=== PATIENT | female | born 1940 | race Caucasian/White ===

== ENCOUNTER 2017-02-15 11:46 | Inpatient (IN) | payer MEDICARE, OTHER ==
[~2017-02-15] VITALS: Ht 167.6 cm; Wt 63.5 kg
[2017-02-15 12:30] LABS: BASOPHILS % (AUTO) 0.2 % (0-1); EOSINOPHILS # (AUTO) 0.1 X10'3 (0-0.9); EOSINOPHILS % (AUTO) 1.7 % (0-6); HEMATOCRIT 41.3 % (35.0-45.0); HEMOGLOBIN 13.9 g/dl (12.0-16.0); LYMPHOCYTES # (AUTO) 0.9 X10'3 (1.1-4.8); LYMPHOCYTES % (AUTO) 11.5 % (21-51); MEAN CORPUSCULAR HEMOGLOBIN 31.7 PG (27.0-31.0); MEAN CORPUSCULAR HGB CONC 33.6 % (33.0-36.5); MEAN CORPUSCULAR VOLUME 94.3 FL (78-98); MEAN PLATELET VOLUME 9.7 FL (7.4-10.4); MONOCYTES # (AUTO) 0.3 X10'3 (0-0.9); NEUTROPHILS # (AUTO) 6.5 X10'3 (1.8-7.7); NEUTROPHILS % (AUTO) 82.6 % (42-75); PLATELET COUNT 191 X10'3 (140-440); RED BLOOD COUNT 4.38 X10'6 (4.20-5.60); RED CELL DISTRIBUTION WIDTH 13.8 % (11.5-14.5); WHITE BLOOD COUNT 7.8 X10'3 (4.5-11.0)
[2017-02-15] MEDS ORDERED: aspirin 325mg tablet PO ONE (12:35)
[2017-02-15] MEDS: ondansetron 4mg rapidly disintigrating tab PO ONE ×2 (12:35→13:02)
[2017-02-15] MEDS: HYDROcodone/acetaminophen 10/325mg tab PO ONE ×2 (12:35→13:02)
[2017-02-15 12:44] LABS: PARTIAL THROMBOPLASTIN TIME 26 SECONDS (22-32); PROTHROMBIN TIME 10.7 SECONDS (9.0-12.0)
[2017-02-15 12:47] LABS: ALANINE AMINOTRANSFERASE 15 U/L (12-78); ALBUMIN/GLOBULIN RATIO 1.1 (1.1-1.5); ALKALINE PHOSPHATASE 74 IU/L (46-116); ANION GAP 9 (8-16); ASPARTATE AMINO TRANSFERASE 15 U/L (10-37); BILIRUBIN,TOTAL 0.5 MG/DL (0.1-1.0); BLOOD UREA NITROGEN 17 MG/DL (7-18); BUN/CREATININE RATIO 18.5 (6.6-38.0); CHLORIDE 105 MMOL/L (99-107); CREATININE 0.92 MG/DL (0.40-0.90); GLUCOSE 109 MG/DL (70-104); POTASSIUM 4.2 MMOL/L (3.5-5.1); SODIUM 139 MMOL/L (135-145); TOTAL CARBON DIOXIDE 25.2 MMOL/L (24-32); TOTAL PROTEIN 7.6 G/DL (6.4-8.2); eGFR 59 ML/MIN
[2017-02-15 13:56] LABS: CLARITY,URINE CLEAR (Clear); COLOR,URINE YELLOW (Yellow); GLUCOSE, URINE NEGATIVE (Neg); KETONES,URINE NEGATIVE (Neg); LEUKOCYTE ESTERASE ,URINE TRACE (Neg); NITRITES, URINE NEGATIVE (Neg); OCCULT BLOOD,URINE NEGATIVE (Neg); PROTEIN,URINE NEGATIVE (Neg); UROBILINOGEN,URINE 0.2 E.U/dL (0.2-1.0)
[2017-02-15 14:08] LABS: UA COLLECTION TYPE CLN CATCH MIDSTREAM
[2017-02-15 14:12] LABS: BACTERIA,URINE FEW /HPF (Neg); RENAL CELLS, URINE FEW /HPF; SQUAMOUS EPITHELIAL CELL,UR MODERATE /LPF (FEW)
[2017-02-15] MEDS ORDERED: sodium chloride 0.45% 1,000 ML IV SCH (14:12)
[2017-02-15 14:13] LABS: RBC,URINE 0-2 /HPF (0-2); WBC,URINE 0-4 /HPF (0-4)
[2017-02-15] MEDS ORDERED: potassium Cl 40MEQ/NS 500ml 500 ML IV PRN ×2 (14:15)
[2017-02-15] MEDS ORDERED: acetaminophen 325mg tablet PO PRN (14:15)
[2017-02-15] MEDS ORDERED: magnesium hydroxide 30ml (MOM) UD suspension PO PRN (14:15)
[2017-02-15] MEDS ORDERED: magnesium 2GM in 50ml NS 50 ML IV PRN (14:15)
[2017-02-15] MEDS ORDERED: potassium Cl 20 mEq SR tablet PO PRN ×2 (14:15)
[2017-02-15] MEDS ORDERED: ondansetron/PF 4mg/2ml inj IV PRN (14:15)
[2017-02-15] MEDS ORDERED: mag hydrox/Alum hydrox/simeth 30ml oral suspension PO PRN (14:15)
[2017-02-15] MEDS ORDERED: magnesium Cl slow-release 64mg tablet PO PRN (14:15)
[2017-02-15] MEDS ORDERED: magnesium 4gm in 100ml NS 100 ML IV PRN (14:15)
[2017-02-15 16:00] VITALS: BP 165/85
[2017-02-15 19:12] LABS: CLARITY,URINE Cloudy (Clear); COLOR,URINE Yellow (Yellow); GLUCOSE, URINE Negative (Neg); KETONES,URINE Trace mg/dl (Neg); LEUKOCYTE ESTERASE ,URINE Large (Neg); NITRITES, URINE Negative (Neg); OCCULT BLOOD,URINE Negative (Neg); PH,URINE 5.5 (4.8-8.0); PROTEIN,URINE Negative (Neg)
[2017-02-15 19:18] LABS: UA COLLECTION TYPE STRAIGHT CATH
[2017-02-15 19:23] LABS: BACTERIA,URINE 4+ /HPF (Neg); RBC,URINE 0-2 /HPF (0-2); WBC,URINE 30-50 /HPF (0-4)
[2017-02-15 19:24] LABS: SQUAMOUS EPITHELIAL CELL,UR MANY /LPF (FEW)
[2017-02-15] MEDS ORDERED: atorvastatin 10mg tablet PO SCH (20:00)
[2017-02-15] MEDS: docusate sod 100mg capsule PO SCH (20:14)
[2017-02-15] MEDS ORDERED: NO HOME MEDS (21:10)
[2017-02-15 22:00] VITALS: BP 134/71
[2017-02-16 02:00] VITALS: BP_SYST 110; BP_SYST 124; BP_SYST 130; BP_DIAS 64; BP_DIAS 70; BP_DIAS 75
[2017-02-16 02:16] VITALS: BP 124/70
[2017-02-16 06:00] VITALS: BP 127/73
[2017-02-16 06:46] LABS: BASOPHILS % (AUTO) 0.6 % (0-1); EOSINOPHILS # (AUTO) 0.1 X10'3 (0-0.9); EOSINOPHILS % (AUTO) 2.5 % (0-6); HEMOGLOBIN 13.5 g/dl (12.0-16.0); LYMPHOCYTES # (AUTO) 1.4 X10'3 (1.1-4.8); LYMPHOCYTES % (AUTO) 26.8 % (21-51); MEAN CORPUSCULAR HEMOGLOBIN 31.9 PG (27.0-31.0); MEAN CORPUSCULAR HGB CONC 33.8 % (33.0-36.5); MEAN CORPUSCULAR VOLUME 94.4 FL (78-98); MONOCYTES # (AUTO) 0.4 X10'3 (0-0.9); MONOCYTES % (AUTO) 7.3 % (2-12); NEUTROPHILS # (AUTO) 3.4 X10'3 (1.8-7.7); NEUTROPHILS % (AUTO) 62.8 % (42-75); PLATELET COUNT 188 X10'3 (140-440); RED BLOOD COUNT 4.23 X10'6 (4.20-5.60); RED CELL DISTRIBUTION WIDTH 13.8 % (11.5-14.5); WHITE BLOOD COUNT 5.4 X10'3 (4.5-11.0)
[2017-02-16 07:02] LABS: HYPOGRANULAR PLATELETS FEW; LARGE PLATELETS FEW; PLATELET ESTIMATE NORMAL
[2017-02-16 07:12] LABS: ALBUMIN 3.5 G/DL (3.4-5.0); ANION GAP 7 (8-16); BLOOD UREA NITROGEN 16 MG/DL (7-18); BUN/CREATININE RATIO 21.6 (6.6-38.0); CALCIUM 8.5 MG/DL (8.5-10.1); CHLORIDE 106 MMOL/L (99-107); CHOL/HDL RATIO 2.9 (0.00-4.99); CHOLESTEROL 197 MG/DL (0-200); CREATININE 0.74 MG/DL (0.40-0.90); GLUCOSE 99 MG/DL (70-104); HDL CHOLESTEROL 67 MG/DL (35-60); LDL CHOLESTEROL 114 MG/DL (50-100); MAGNESIUM 1.9 MG/DL (1.5-2.4); POTASSIUM 3.8 MMOL/L (3.5-5.1); SODIUM 141 MMOL/L (135-145); TRIGLYCERIDES 78 MG/DL (20-135); eGFR 76 ML/MIN
[2017-02-16 07:17] VITALS: BP_SYST 136; BP_SYST 141; BP_SYST 143; BP_DIAS 83; BP_DIAS 84; BP_DIAS 86
[2017-02-16] MEDS: docusate sod 100mg capsule PO SCH (07:46)
[2017-02-16] MEDS ORDERED: aspirin 81mg tablet.DR PO SCH (08:00)
[2017-02-16] MEDS ORDERED: enoxaparin 40mg/0.4ml syringe SUBCUT SCH (08:00)
[2017-02-16] MEDS ORDERED: K and/or MAG REPLACEMENT MC SCH (08:00)
[2017-02-16] MEDS ORDERED: sulfamethoxazole/trimethoprim DS (800/160mg) tablet PO SCH (08:05)
[2017-02-16 10:00] VITALS: BP 142/82
[2017-02-16] MEDS ORDERED: BACDS PO (12:10)
[2017-02-16] MEDS ORDERED: ASPI-1071 PO (12:10)
[2017-02-16] MEDS ORDERED: ATOR20TA66 PO (12:10)
[2017-02-17] MEDS ORDERED: atorvastatin 20mg tablet PO SCH (08:00)
== END 2017-02-16 13:42 | disposition home or self-care (01) | DRG 69 ==
LOC: ER 11:47 → ED HOLD 13:17 → EDBEDREQ 13:43 → ORTHO 4S 15:00
PROVIDERS: ADMIT Internal Medicine; ATTEND Internal Medicine
DX: G45.9 Transient cerebral ischemic attack, unspecified (principal); N39.0 Urinary tract infection, site not specified; E78.5 Hyperlipidemia, unspecified; I10 Essential (primary) hypertension; Z82.49 Family history of ischemic heart disease and other diseases of the circulatory system
CPT/HCPCS: 36415; 70450; 70544; 70551; 71045; 80048; 80053; 80061; 81001; 83735; 85025; 85610; 85651; 85730; 87070; 87088; 92616; 93005; 93306; 93880; 99285; A4353; J1650

== ENCOUNTER 2024-05-21 08:36 | Outpatient (CLI) | payer MEDICARE, OTHER ==
[~2024-05-21 08:36] MED LIST: ASPI-1071 PO; ATOR20TA66 PO; SULF1TAB45 PO
== END 2024-05-21 23:59 | disposition home or self-care (01) ==
LOC: US 08:36
PROVIDERS: ATTEND Registered Nurse
DX: R10.9 Unspecified abdominal pain (principal)
CPT/HCPCS: 76700